=== PATIENT | female | born 1990 | race Caucasian/White ===

== ENCOUNTER → 2017-03-30 | Outpatient (CLI) | payer OTHER ==
[~2017-03-30] MED LIST: LEVO75TA5; PRENTAB26 PO; Tylenol #3; [UNRECOGNIZED DRUG - CODE] PO
== END | disposition home or self-care (01) ==
LOC: C.LAB 22:59
DX: Z02.83 Encounter for blood-alcohol and blood-drug test (principal)

== ENCOUNTER 2017-05-29 21:08 | Emergency (ER) | payer SELFPAY ==
[~2017-05-29] VITALS: Ht 167.6 cm; Wt 60.1 kg
[2017-05-29 21:10] VITALS: TEMP 36.8; Ht 167.6 cm; Wt 60.1 kg
[2017-05-29] MEDS ORDERED: PROPARACAINE HCL 0.5% OP SOLN 15 ML BTL OP STA (21:47)
--- NOTE | 2017-05-29 22:53 | EMERGENCY ROOM VISIT NOTE ---
ED Visit Note First contact with patient: 21:41 CHIEF COMPLAINT: Red, irritated eye HISTORY OF PRESENT ILLNESS: This 26-year-old female presents to the emergency department ambulatory complaining of redness in the left eye which has gradually increased over the past week. The patient states that she has had some swelling of the upper eyelid and a "jabbing" pain in the eye. She has been using her father's ointment without relief. She denies any trauma to the eye. She wears glasses, but no contacts. No difficulty with vision. The patient does not have a foreign body sensation. No headache, rash, nausea or vomiting. REVIEW OF SYSTEMS: A 6 system review of systems was completed with positives and pertinent negatives in the HPI. ALLERGIES: No known drug allergies MEDICATIONS: See med list PMH: No significant past medical history. SOCIAL HISTORY: The patient lives locally with family. She is a smoker and admits to occasional alcohol use. PHYSICAL EXAM: Vital Signs: Reviewed Nurse's notes, Temperature 36.8C. GENERAL : This is a 26-year-old female, in no acute distress, well-developed, nourished. SKIN: Warm, dry. No cyanosis. No petechia. EYES: Both pupils are equal round and reactive to light and accommodation, EOMs intact. There is clear discharge in the left eye and moderate injection. There is no foreign body of the eyelid with lid eversion. Funduscopic exam reveals no hemorrhages, papilledema, or other abnormalities. No foreign body on the cornea, no hyphema. No uptake of fluorescein visible with UV light. No corneal abrasion and no corneal ulcer. Medication reconciliation: I attest that I have personally reviewed the patient 's current medication list. Blood pressure screening: Patient was found to have normal blood pressure on screening and does not require follow-up. EMERGENCY DEPARTMENT COURSE: I examined the patient. A slit lamp exam was performed and is as described above. Two drops of Ciloxan were put in the left eye and the patient was instructed as noted below. The patient was discharged home in good condition. DIAGNOSIS: Acute conjunctivitis Problem List Medical Problems: (1) History of tonsillectomy Status: Resolved (2) No Known Active Medical Problems Status: Chronic (3) [place] Teeth Removal Status: Resolved Current/Historical Medications Scheduled Multivit/Min/Iron/Fol Ac/Pren ( Vitamin), 1 TAB PO DAILY Scheduled PRN Acetaminophen/Codeine (Acetaminophen/Codeine #2), 1 TAB PO Q4H PRN for pa Miscellaneous Medications Levothyroxine Sodium (Levothyroxine Sodium) [Tylenol #3] Allergies Coded Allergies: No Known Allergies (Unverified , 11/02/13) Vital Signs Date Time Temp Pulse Resp B/P (MAP) Pulse Ox O2 Delivery O2 Flow Rate FiO2 05/29/17 23:07 54 104/73 99 Room Air 05/29/17 21:10 36.8 62 16 130/92 98 Room Air Medications Administered Medications (Trade) Dose Ordered Sig/Pierce Route Start Time Stop Time Status Last Admin Dose Admin Proparacaine HCl (Alcaine 0.5% Oph Soln) 2 drops NOW STAT OP 05/29/17 21:47 05/29/17 21:48 DC 05/29/17 22:07 2 DROPS Ciprofloxacin HCl (Ciprofloxacin 0.3% Op Soln) 2 drops Q4H ONCE OP 05/29/17 23:00 05/29/17 23:01 DC 05/29/17 23:08 2 DROPS Departure Information Impression Primary Impression: Conjunctivitis of left eye Dispostion Home / Self-Care Condition GOOD Referrals No Doctor, Assigned (PCP) Patient Instructions My [facility] Additional Instructions You have been prescribed Ciloxan eye drops. This is an antibiotic which will help to prevent an infection from developing in your affected eye. You should use 2 drops in the affected eye every 2 hours while awake for the first 2 days, then every 4 hours for the remaining 5 days. This is a total of a 7-day course for these antibiotic eye drops. For pain control, you can use the following [id number] medicines (if >12 yo): - Regular strength (325mg/tab) Tylenol (acetaminophen) 2 tabs every 4-6 hours as needed. Do not exceed 12 tablets in a 24 hour period. Avoid taking more than 4 grams (4000 mg) of Tylenol per day. This includes any other sources of acetaminophen you may take on a regular basis. - Regular strength (200 mg/tab) Advil (ibuprofen) 1-2 tabs every 4-6 hours as needed. Do not exceed a dose of 3200 mg per day. Throw away any cosmetics you are using on the eye. You may use cool compresses for relief. Follow-up with an mechanical insulator or cad technician if you're still having pain or difficulty with vision in 2-3 days. Return to the emergency department with worsening vision changes, worsening pain , fevers or any other new/concerning symptoms. Problem Qualifiers Primary Impression: Conjunctivitis of left eye Conjunctivitis type: acute Acute conjunctivitis type: unspecified Qualified Codes: H10.32 - Unspecified acute conjunctivitis, left eye
[2017-05-29] MEDS ORDERED: CIPROFLOXACIN HCL 0.3% OP SOLN 2.5 ML BTL OP ONE (23:00)
[2017-05-29 23:07] VITALS: BP 104/73; PULSE 54; O2SAT 99
== END 2017-05-29 23:13 | disposition home or self-care (01) ==
LOC: C.EDB 21:09 → C.EDD 23:13
DX: H10.32 Unspecified acute conjunctivitis, left eye (principal)